=== PATIENT | male | born 1955 | race Two or more races ===

== ENCOUNTER 2017-01-17 15:43 | Emergency (ER) | payer OTHER ==
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
[~2017-01-17 15:43] MED LIST: ATENOLOL25 MG PO; HYDRALAZINE HCL25 MG PO; ZESTRIL10 M1 PO
== END 2017-01-17 18:09 | disposition home or self-care (01) ==
LOC: CFTX 15:43 → CED 15:43 → CFTX 17:38
DX: S20.211A Contusion of right front wall of thorax, initial encounter (principal); S70.01XA Contusion of right hip, initial encounter; I10 Essential (primary) hypertension; V89.2XXA Person injured in unspecified motor-vehicle accident, traffic, initial encounter; Y92.410 Unspecified street and highway as the place of occurrence of the external cause
CPT/HCPCS: 73030; 99283